=== PATIENT | female | born 1965 | race Hispanic/Latino ===

== ENCOUNTER 2017-05-28 08:47 | Emergency (ER) | payer OTHER ==
[2017-05-28 09:03] VITALS: PULSE 90; RESP 20; TEMP 97.6; O2SAT 97
--- NOTE | 2017-05-28 09:22 | ED PDOC ---
HPI: Skin/Bite Injury Time Seen by Provider: 05/28/17 09:12 Chief Complaint (Nursing): Bite Chief Complaint (Provider): Bite History Per: Patient History/Exam Limitations: no limitations Onset/Duration Of Symptoms: Days (x10) Current Symptoms Are (Timing): Still Present Additional Complaint(s): 52 year old female presents to the emergency department for an evaluation of a bite natali on her left forearm, sustained from a stray cat, 10 days ago. Patient stated that she has been washing wound since onset with no reported fever, chills or neuropathy. Tetanus vaccinations are up-to-date. PMD: none provided - Animal Bite Description Of The Animal: Stray (cat) Animal's Immunization Status: UTD Past Medical History Reviewed: Historical Data, Nursing Documentation, Vital Signs Vital Signs: Last Vital Signs Temp 97.6 F 05/28/17 09:01 Pulse 90 05/28/17 09:01 Resp 20 05/28/17 09:01 BP Pulse Ox 97 05/28/17 10:15 - Medical History PMH: No Chronic Diseases - Surgical History Surgical History: Appendectomy - Family History Family History: States: Unknown Family Hx - Social History Current smoker - smoking cessation education provided: No Ex-Smoker (has not smoked in the last 12 months): No Alcohol: None Drugs: Denies - Immunization History Hx Tetanus Toxoid Vaccination: Yes - Allergies Allergies/Adverse Reactions: Allergies Allergy/AdvReac Type Severity Reaction Status Date / Time No Known Allergies Allergy Verified 05/28/17 09:00 Review of Systems ROS Statement: Except As Marked, All Systems Reviewed And Found Negative Constitutional: Negative for: Fever, Chills Musculoskeletal: Positive for: Other (left forearm bite natali) Neurological: Negative for: Weakness, Numbness Physical Exam - Reviewed Nursing Documentation Reviewed: Yes Vital Signs Reviewed: Yes - Physical Exam Appears: Positive for: Well, Non-toxic, No Acute Distress Skin: Positive for: Normal Color, Warm, Dry. Negative for: Rash Extremity: Positive for: Normal ROM (bilateral arms), Other (punture natali on dorsal aspect of left forearm). Negative for: Swelling (or erythema to left arm ) Neurologic/Psych: Positive for: Alert (x3), Oriented. Negative for: Motor/ Sensory Deficits - ECG O2 Sat by Pulse Oximetry: 97 (RA) Pulse Ox Interpretation: Normal Medical Decision Making Medical Decision Making: Initial Impression: Cat bite Initial Plan: * Imogam 1120 intlu IM * Rabavert vaccine inj 2.5units IM Time: 929 --Upon provider evaluation, patient is medically stable and requires no further treatment in the ED at this time. Patient will be discharged home. Counseling was provided and all questions were answered regarding diagnosis and need for follow up with ED in 3 days for the next rabies vaccine. There is agreement to discharge plan. Return if symptoms persist or worsen. Clinical Impression: Cat bite Scribe Attestation: Documented by Cheryle Zelaya, acting as a scribe for Austin ySed DO. Provider Scribe Attestation: All medical record entries made by the Scribe were at my direction and personally dictated by me. I have reviewed the chart and agree that the record accurately reflects my personal performance of the history, physical exam, medical decision making, and the department course for this patient. I have also personally directed, reviewed, and agree with the discharge instructions and disposition. Disposition - Clinical Impression Clinical Impression: Cat bite - Patient ED Disposition Is Patient to be Admitted: No Counseled Patient/Family Regarding: Diagnosis, Need For Followup - Disposition Disposition: Routine/Home Disposition Time: 09:15 Condition: GOOD Additional Instructions: Thank you for letting us take care of you today. The emergency medical care you received today was directed at your acute symptoms. If you were prescribed any medication, please fill it and take as directed. It may take several days for your symptoms to resolve. Return to the Emergency Department if your symptoms worsen, do not improve, or if you have any other problems. Please contact your doctor or call one of the physicians/clinics you have been referred to that are listed on the Patient Visit Information form that is included in your discharge packet. Bring any paperwork you were given at discharge with you along with any medications you are taking to your follow up visit. Our treatment cannot replace ongoing medical care by a primary care provider (PCP) outside of the emergency department. Thank you for allowing the [facility] team to be part of your care today. Follow up in the emergency room in 3 days for your next rabies vaccine. Continue to wash the area and keep it clean. Instructions: Animal Bites (DC) Forms: [facility] (Ukrainian)
[2017-05-28] MEDS ORDERED: RABIES VACCINE 2.5 Units PDR IM ONE (10:00)
[2017-05-28] MEDS ORDERED: Rabies Immune Globulin 150 INTLU/ML VIAL IM ONE (10:00)
== END 2017-05-28 10:30 | disposition home or self-care (01) ==
LOC: H.ER 08:47
DX: Z29.14 Encounter for prophylactic rabies immune globulin (principal)

== ENCOUNTER 2017-05-31 06:57 | Emergency (ER) | payer OTHER ==
[2017-05-31 07:07] VITALS: BP 129/75; PULSE 69; RESP 18; TEMP 98.5; O2SAT 98
--- NOTE | 2017-05-31 07:33 | ED PDOC ---
HPI: General Adult Time Seen by Provider: 05/31/17 07:17 Chief Complaint (Nursing): Rabies Vaccine Series History Per: Patient (here for dose#3 of rabies vaccine. patient was bit by a kitten while on vacation. ) Past Medical History Reviewed: Historical Data Vital Signs: Last Vital Signs Temp 98.5 F 05/31/17 07:06 Pulse 69 05/31/17 07:06 Resp 18 05/31/17 07:06 BP 129/75 05/31/17 07:06 Pulse Ox 98 05/31/17 07:06 - Surgical History Surgical History: Appendectomy - Family History Family History: States: Unknown Family Hx - Immunization History Hx Tetanus Toxoid Vaccination: Yes - Allergies Allergies/Adverse Reactions: Allergies Allergy/AdvReac Type Severity Reaction Status Date / Time No Known Allergies Allergy Verified 05/28/17 09:00 Review of Systems ROS Statement: Except As Marked, All Systems Reviewed And Found Negative Constitutional: Negative for: Fever Gastrointestinal: Negative for: Nausea, Vomiting Physical Exam - Reviewed Nursing Documentation Reviewed: Yes Vital Signs Reviewed: Yes - Physical Exam Appears: Positive for: Well, Non-toxic, No Acute Distress Skin: Positive for: Normal Color, Warm, DRY - ECG O2 Sat by Pulse Oximetry: 98 Disposition - Clinical Impression Clinical Impression: Cat bite - Patient ED Disposition Is Patient to be Admitted: No Doctor Will See Patient In The: Office Counseled Patient/Family Regarding: Diagnosis, Need For Followup - Disposition Disposition: Routine/Home Disposition Time: 07:32 Condition: STABLE Additional Instructions: Return to the Emergency Department as scheduled. Instructions: Rabies Vaccine - POA Present On Arrival: None
[2017-05-31] MEDS ORDERED: RABIES VACCINE 2.5 Units PDR IM ONE (07:36)
== END 2017-05-31 08:12 | disposition home or self-care (01) ==
LOC: H.ER 06:57
DX: Z29.14 Encounter for prophylactic rabies immune globulin (principal)

== ENCOUNTER 2017-06-04 06:52 | Emergency (ER) | payer OTHER ==
[2017-06-04 07:09] VITALS: BP 128/70; PULSE 63; RESP 18; TEMP 98.4; O2SAT 99
[2017-06-04 07:19] VITALS: BMI 21.5
--- NOTE | 2017-06-04 07:43 | ED PDOC ---
HPI: General Adult Time Seen by Provider: 06/04/17 07:14 Chief Complaint (Provider): Rabies vaccine series History Per: Patient History/Exam Limitations: no limitations Onset/Duration Of Symptoms: Days (May 27) Additional Complaint(s): Bridgette Flood is a 52 year old female, with no significant past medical history , who presents to the emergency department for serial rabies vaccine injections. Patient is here for 3rd injection. She was originally here on May 27 for cat bite and started on rabies vaccine series. Patient states it is just a follow up. She denies any medical complaints. No other questions or concerns. PMD: None provided. Past Medical History Reviewed: Historical Data, Nursing Documentation, Vital Signs Vital Signs: Last Vital Signs Temp 98.4 F 06/04/17 07:09 Pulse 63 06/04/17 07:09 Resp 18 06/04/17 07:09 BP 128/70 06/04/17 07:09 Pulse Ox 99 06/04/17 07:45 - Medical History PMH: No Chronic Diseases Denies: Chronic Kidney Disease - Surgical History Surgical History: Appendectomy - Family History Family History: States: Unknown Family Hx - Social History Current smoker - smoking cessation education provided: No Alcohol: Social Drugs: Denies - Immunization History Hx Tetanus Toxoid Vaccination: Yes - Allergies Allergies/Adverse Reactions: Allergies Allergy/AdvReac Type Severity Reaction Status Date / Time No Known Allergies Allergy Verified 05/28/17 09:00 Review of Systems ROS Statement: Except As Marked, All Systems Reviewed And Found Negative Physical Exam - Reviewed Nursing Documentation Reviewed: Yes Vital Signs Reviewed: Yes - Physical Exam Appears: Positive for: Well, Non-toxic, No Acute Distress Head Exam: Positive for: ATRAUMATIC, NORMOCEPHALIC Skin: Positive for: Normal Color, Warm, Dry Eye Exam: Positive for: Normal appearance Neck: Positive for: Painless ROM Respiratory: Negative for: Respiratory Distress Extremity: Positive for: Normal ROM (upper and lower extremities). Negative for : Deformity, Swelling Neurologic/Psych: Positive for: Alert, Oriented - ECG O2 Sat by Pulse Oximetry: 99 (RA) Pulse Ox Interpretation: Normal Medical Decision Making Medical Decision Making: Initial Impression: Rabies vaccination series visit Initial Plan: --Rabavert Vaccine Inj 2.5 units IM Scribe Attestation: Documented by Melvin Bangura, acting as a scribe for Mena Johnson PA-C Provider Scribe Attestation: All medical record entries made by the Scribe were at my direction and personally dictated by me. I have reviewed the chart and agree that the record accurately reflects my personal performance of the history, physical exam, medical decision making, and the department course for this patient. I have also personally directed, reviewed, and agree with the discharge instructions and disposition. Disposition - Clinical Impression Clinical Impression: Encounter for repeat administration of rabies vaccination - Patient ED Disposition Is Patient to be Admitted: No Doctor Will See Patient In The: Office Counseled Patient/Family Regarding: Studies Performed, Diagnosis, Need For Followup - Disposition Referrals: [facility] [Outside] Disposition: Routine/Home Disposition Time: 07:54 Condition: GOOD Additional Instructions: Return for final injection in 7 days. Follow up with your PCP in 2-3 days. Instructions: Rabies Vaccine
[2017-06-04] MEDS ORDERED: RABIES VACCINE 2.5 Units PDR IM ONE (08:00)
== END 2017-06-04 07:56 | disposition home or self-care (01) ==
LOC: H.ER 06:52
DX: Z23 Encounter for immunization (principal)